=== PATIENT | female | born 1980 | race American Indian/Alaskan Native ===

== ENCOUNTER 2017-03-09 06:19 | Emergency (ER) | payer MEDICAID ==
--- NOTE | 2017-03-09 06:45 | Emergency Department Report ---
HPI - General Time Seen by Provider: 03/09/17 06:28 - HPI HPI: This is a 36-year-old female who presents to the emergency department with complaint of lower abdominal and/or pelvic pain and possible contractions while at about 19 weeks and 6 days. The patient says that she should be 20 weeks tomorrow. With this she is with one live child and 3 previous miscarriages. 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 She began having abdominal discomfort in the middle of the night but then it became more intense and spasmodic, like previous contractions. She called the [facility] service who told her to take ibuprofen, taking a hot shower but the patient was too uncomfortable. They started coming to [facility], where she is normally seen, but the pain was too much so they diverted to [facility]. She otherwise denies any other past medical history. She did not take any ibuprofen or any other medication prior to presentation today. ED Past Medical Hx - Medications Home Medications: Home Medications Medication Instructions Recorded Confirmed Last Taken Type No Known Home Medications [No 03/09/17 03/09/17 Unknown History Reported Home Medications] ED Review of Systems ROS: Stated complaint: ABD PAIN/ Other details as noted in HPI Comment: All other systems reviewed and negative Constitutional: denies: chills, fever Eyes: denies: eye pain, eye discharge, vision change ENT: denies: ear pain, throat pain Respiratory: denies: cough, shortness of breath, wheezing Cardiovascular: denies: chest pain, palpitations Gastrointestinal: abdominal pain. denies: nausea, vomiting Genitourinary: denies: urgency, dysuria, discharge Musculoskeletal: denies: back pain, joint swelling, arthralgia Skin: denies: rash, lesions Neurological: denies: headache, weakness, paresthesias Physical Exam - Physical Exam Physical Exam: GENERAL: The patient is well-developed well-nourished. HENT: Normocephalic. Atraumatic. Patient has moist mucous membranes. EYES: Extraocular motions are intact. Pupils equal reactive to light bilaterally. NECK: Supple. Trachea is midline. CHEST/LUNGS: Clear to auscultation. There is no respiratory distress noted. HEART/CARDIOVASCULAR: Regular. There is no tachycardia. There is no gallop rub or murmur. ABDOMEN: Abdomen is soft, nontender to palpation. Patient has normal bowel sounds. There is no abdominal distention. Gravid uterus palpable about the umbilicus. SKIN: Skin is warm and dry. NEURO: The patient is awake, alert, and oriented. The patient is cooperative. The patient has no focal neurologic deficits. The patient has normal speech. MUSCULOSKELETAL: There is no tenderness or deformity. There is no limitation range of motion. There is no evidence of acute injury. ED Medical Decision Making - Lab Data Result diagrams: 03/09/17 06:50 03/09/17 06:50 - Radiology Data Radiology results: report reviewed Transvaginal/obstetric ultrasound shows a live intrauterine at 20 weeks. - Medical Decision Making 36-year-old female presents to the emergency department at about 20 weeks with some abdominal discomfort that feels like labor contractions. Labs are mostly unremarkable. Ultrasound shows a live intrauterine at 20 weeks. The patient continued to have these spasmodic abdominal pain that she says feels like her previous contractions when she gave . Since the fetus is technically viable at 20 weeks, she was brought over to labor and delivery for further evaluation. - Differential Diagnosis , contractions, labor Critical Care Time: No Critical care attestation.: If time is entered above; I have spent that time in minutes in the direct care of this critically ill patient, excluding procedure time. ED Disposition Clinical Impression: contractions Qualifiers: Weeks of gestation: 20 weeks Qualified Code(s): Z3A.20 - 20 weeks gestation of Abdominal pain Qualifiers: Abdominal location: lower abdomen, unspecified Qualified Code(s): R10.30 - Lower abdominal pain, unspecified Disposition: DC-01 TO HOME OR SELFCARE Is pt being admited?: No Condition: Stable Instructions: (ED), Abdominal Pain (ED) Additional Instructions: You will be discharged over to labor and delivery for evaluation of possible labor or contractions. If there is no reason for admission or transfer, then you will be recommended to follow up with your [facility] service as soon as possible. Return to the emergency department immediately with any worsening of her symptoms or any acute distress. Referrals: PRIMARY CARE, [Primary Care Provider] - [facility]
[2017-03-09 07:02] LABS: Basophils % (Auto) 0.4 % (0.0-1.8); Eosinophils % (Auto) 0.7 % (0.0-4.3); Hematocrit 37.9 % (30.3-42.9); Hemoglobin 12.9 gm/dl (10.1-14.3); Mean Corpuscular HGB Conc 34 % (30-34); Mean Corpuscular Hemoglobin 31 pg (28-32); Mean Corpuscular Volume 91 fl (79-97); Red Blood Count 4.19 M/mm3 (3.65-5.03); Red Cell Distribution Width 13.7 % (13.2-15.2); White Blood Count 7.3 K/mm3 (4.5-11.0)
[2017-03-09 07:07] LABS: Platelet Count 161 K/mm3 (140-440)
[2017-03-09 07:39] LABS: Alanine Aminotransferase 8 units/L (7-56); Albumin 3.8 g/dL (3.9-5); Albumin/Globulin Ratio 1.4 %; Alkaline Phosphatase 34 units/L (35-129); Anion Gap 21 mmol/L; Blood Urea Nitrogen 7 mg/dL (7-17); Calcium 8.6 mg/dL (8.4-10.2); Carbon Dioxide 19 mmol/L (22-30); Chloride 102.6 mmol/L (98-107); Glucose 95 mg/dL (65-100); Potassium 3.8 mmol/L (3.6-5.0); Sodium 139 mmol/L (137-145); Total Protein 6.5 g/dL (6.3-8.2)
--- NOTE | 2017-03-09 07:51 | Ultrasound Report ---
FINAL REPORT EXAM: US OB \T\gt; = 14 WEEKS FETUS HISTORY: , abd pain TECHNIQUE: Obstetrical ultrasound was performed. PRIORS: None. FINDINGS: position is breech. Placental location is posterior. Negative for placenta previa. Negative for placental abruption. Amniotic fluid volume is normal. cardiac activity is identified, measured at 142 beats per minute. Measurements: BPD: 4.6 cm-19 weeks 5 days HC: 17.4 cm-19 weeks 6 days AC: 14.5 cm-19 weeks 6 days FL: 3.4 cm-20 weeks 4 days H/A ratio 1.20 (1.09-1.26). Avg age by US: 20 weeks 0 days with corresponding CATHERINE of 07/27/2017 Clinical age by LMP of 10/23/1998 17-19 weeks 5 days with corresponding CATHERINE of 07/29/2017: EFW of 334 g is 70th percentile for 19 weeks 5 days. Survey of anatomy: Four-chamber heart, stomach, bladder, kidneys, 3 vessel cord, diaphragm, cord insertion, choroid plexus, ventricles, cerebellum/cisterna magna are documented in demonstrate no significant abnormality. Limited spine evaluation due to spine down position of the fetus. Cervical length is normal measuring 4.3 cm. IMPRESSION: There is a single live intrauterine of approximately 20 weeks 0 days according to today's measurements. This corresponds to CATHERINE of 07/27/2017. No significant abnormality seen on survey of anatomy. Limited spine evaluation due to spine down position of the fetus.
[2017-03-09 08:08] LABS: Bilirubin,Urine NEG (Negative); Blood,Urine NEG (Negative); Ketones,Urine NEG (Negative); Leukocyte Esterase,Urine NEG (Negative); Nitrite,Urine NEG (Negative); Protein,Urine <15 mg/dL mg/dL (Negative); Urobilinogen,Urine < 2.0 mg/dL (<2.0)
[2017-03-09 08:10] VITALS: BP 109/68
[2017-03-09 08:11] LABS: RBC,Urine < 1.0 /HPF (0.0-6.0); WBC,Urine < 1.0 /HPF (0.0-6.0)
[2017-03-09] MEDS ORDERED: NACL 0.9% 1000 ML 1,000 ML IV ONE (09:54)
== END 2017-03-09 09:15 | disposition home or self-care (01) ==
LOC: ED 06:19
DX: O26.892 Other specified pregnancy related conditions, second trimester (principal); Z3A.20 20 weeks gestation of pregnancy
CPT/HCPCS: 36415; 76805; 80053; 81001; 81025; 84703; 85025

== ENCOUNTER 2017-03-09 09:18 | Outpatient (CLI) | payer MEDICAID ==
[2017-03-09] MEDS ORDERED: LACTATED RINGERS 500 ML IV ONE (09:39)
[2017-03-09 09:43] VITALS: BP 114/68
[2017-03-09 09:43] LABS: Urine Drugs of Abuse Note Disclamer
[2017-03-09 10:20] LABS: Bilirubin,Urine NEG (Negative); Blood,Urine NEG (Negative); Ketones,Urine NEG (Negative); Leukocyte Esterase,Urine NEG (Negative); Mucus,Urine FEW /HPF; Nitrite,Urine NEG (Negative); Protein,Urine <15 mg/dL mg/dL (Negative); RBC,Urine < 1.0 /HPF (0.0-6.0); Urobilinogen,Urine < 2.0 mg/dL (<2.0)
[2017-03-11] MEDS ORDERED: LACTATED RINGERS 0 ML ONE (06:01)
[2017-03-11] MEDS ORDERED: LACTATED RINGERS 1,000 ML ONE (07:18)
== END 2017-03-09 12:10 | disposition home or self-care (01) ==
LOC: TRG 09:18 → MERGE 09:18 → LD 09:21 → TRG 12:10
PROVIDERS: ATTEND Obstetrics & Gynecology
DX: O47.02 False labor before 37 completed weeks of gestation, second trimester (principal); Z3A.19 19 weeks gestation of pregnancy
CPT/HCPCS: 36415; 76805; 80053; 80307; 81001; 81025; 84703; 85025; 96360